=== PATIENT | female | born 1955 | race African-American/Black ===

== ENCOUNTER 2022-07-04 10:02 | Emergency (ER) | payer MEDICAID ==
[~2022-07-04] VITALS: Ht 157.5 cm; Wt 61.0 kg
[2022-07-04] MEDS ORDERED: MAGNESIUM/ALUMINUM HYDROXIDE/SIMETHICONE 30ML UDC PO STA (11:13)
[2022-07-04] MEDS ORDERED: VISCOUS LIDOCAINE 2% 15 ML UDC PO STA (11:13)
[2022-07-04] MEDS ORDERED: DICYCLOMINE 10 MG/5 ML ORAL SYR PO STA (11:13)
[2022-07-04 11:15] LABS: BASOPHILS % 0.6 % (0.0-2.0); EOSINOPHILS % 1.4 % (0.0-5.0); HEMATOCRIT. 38.2 % (36.0-48.0); HEMOGLOBIN. 13.2 g/dL (12.0-16.0); LYMPHOCYTES % 15.1 % (20.0-50.0); MEAN CORPUSCULAR HEMOGLOBIN 30.7 pg (28.0-32.0); MEAN CORPUSCULAR VOLUME 88.8 fL (81.0-99.0); MEAN PLATELET VOLUME 9.1 fl (7.4-10.4); MONOCYTES % 7.3 % (2.0-8.0); NEUTROPHILS % 75.6 % (40.0-76.0); PLATELET 282 x1000/uL (130-400); RED CELL DISTRIBUTION WIDTH 13.4 % (11.6-14.6)
[2022-07-04] MEDS ORDERED: ASPIRIN 81MG TABLET PO ONE (11:15)
[2022-07-04 11:32] LABS: PARTIAL THROMBOPLASTIN TIME 26.1 sec (23.4-31.0); PROTHROMBIN TIME 10.9 sec (9.6-11.0)
[2022-07-04 11:33] LABS: CHLORIDE 87 mEq/L (98-107)
[2022-07-04] MEDS ORDERED: SODIUM CHLORIDE 0.9% 1,000 ML IV NR (12:15)
[2022-07-04 22:57] VITALS: BP 122/75
== END 2022-07-04 23:25 | disposition short-term general hospital (02) ==
LOC: ER 10:02 → CANBEDREQ 07-05 21:04
DX: K85.90 Acute pancreatitis without necrosis or infection, unspecified (principal); N17.9 Acute kidney failure, unspecified; E11.9 Type 2 diabetes mellitus without complications; Z20.822 Contact with and (suspected) exposure to COVID-19
CPT/HCPCS: 36415; 71045; 74176; 80053; 83690; 83880; 84484; 85025; 85379; 85610; 85730; 87426; 93005; 96360; 96361; 99285; C9803; Z7610

== ENCOUNTER 2022-12-27 10:26 | Emergency (ER) | payer OTHER ==
[~2022-12-27] VITALS: Ht 154.9 cm; Wt 68.0 kg
[2022-12-27 10:32] VITALS: O2SAT 100
[2022-12-27] MEDS ORDERED: ACETAMINOPHEN 325MG TABLET PO STA (10:36)
[2022-12-27] MEDS ORDERED: SODIUM CHLORIDE 0.9% 1,000 ML IV ONE (10:45)
[2022-12-27] MEDS ORDERED: ASPIRIN 81MG TABLET PO ONE (10:45)
[2022-12-27 10:51] LABS: BASOPHILS % 0.6 % (0.0-2.0); EOSINOPHILS % 1.9 % (0.0-5.0); HEMATOCRIT. 33.5 % (36.0-48.0); HEMOGLOBIN. 11.2 g/dL (12.0-16.0); LYMPHOCYTES % 23.4 % (20.0-50.0); MEAN CORPUSCULAR HEMOGLOBIN 30.1 pg (28.0-32.0); MEAN PLATELET VOLUME 9.2 fl (7.4-10.4); MONOCYTES % 8.1 % (2.0-8.0); PLATELET 250 x1000/uL (130-400); RED BLOOD CELL COUNT 3.72 mill/uL (4.2-5.4); RED CELL DISTRIBUTION WIDTH 13.2 % (11.6-14.6)
[2022-12-27 11:06] LABS: CHLORIDE 113 mEq/L (98-107)
[2022-12-27 11:12] LABS: PROTHROMBIN TIME 10.8 sec (9.6-11.0)
[2022-12-27 11:16] LABS: BETA HYDROXYBUTYRATE 0.1 mMol/L (0.0-0.3)
[2022-12-27 14:32] VITALS: BP 136/75; PULSE 65; RESP 16; TEMP 98.7
== END 2022-12-27 14:36 | disposition home or self-care (01) ==
LOC: ER 10:26
DX: E11.40 Type 2 diabetes mellitus with diabetic neuropathy, unspecified (principal); R51.9 Headache, unspecified; Z20.822 Contact with and (suspected) exposure to COVID-19
CPT/HCPCS: 80053; 82010; 83880; 83690; 85025; 85610; 84484; 36415; 71045; 70450; 93005; 96360; 99285; 87426; Z7610 ×5; J7030; C9803

== ENCOUNTER 2024-12-14 08:10 | Inpatient (IN) | payer OTHER ==
[2024-12-14] VITALS (26 sets, daily range): BP systolic 82–133; BP diastolic 45–77; PULSE 83–117; RESP 14–35; TEMP 36.7–37; O2SAT 98–100
[~2024-12-14] VITALS: Ht 157.5 cm; Wt 58.1 kg
[~2024-12-14 08:10] MED LIST: CYAN-50 PO; GABA-1180 PO; INSU100I28 SQ; LOSA25TA26 PO; SEMA7TAB2 PO; THIA50TA12 PO
[2024-12-14 09:46] LABS: BASOPHILS % 0.5 % (0.0-2.0); EOSINOPHILS % 0.1 % (0.0-5.0); HEMATOCRIT. 39.2 % (36.0-48.0); LYMPHOCYTES % 8.9 % (20.0-50.0); MEAN CORPUSCULAR HEMOGLOBIN 30.8 pg (28.0-32.0); MEAN CORPUSCULAR HGB CONC 33.1 g/dL (31.0-37.0); MEAN PLATELET VOLUME 9.4 fl (7.4-10.4); MONOCYTES % 3.1 % (2.0-8.0); NEUTROPHILS % 87.4 % (40.0-76.0); PLATELET 333 x1000/uL (130-400); RED BLOOD CELL COUNT 4.22 mill/uL (4.2-5.4); RED CELL DISTRIBUTION WIDTH 14.4 % (11.6-14.6); WHITE BLOOD COUNT 11.8 x1000/uL (4.5-11.0)
[2024-12-14 09:54] LABS: CHLORIDE 98 mEq/L (98-107)
[2024-12-14 09:56] LABS: CALCIUM 9.3 mg/dL (8.7-10.4)
[2024-12-14 10:01] LABS: GLUCOSE 216 mg/dL (70-105)
[2024-12-14 10:02] LABS: TROPONIN I HIGH SENSITIVITY 5 ng/L (3.0-34)
[2024-12-14 10:07] LABS: SODIUM 128 mEq/L (136-145); UREA NITROGEN BLOOD 48 mg/dL (9-23)
[2024-12-14 10:16] LABS: POTASSIUM 6.2 mEq/L (3.5-5.1)
[2024-12-14 10:17] LABS: CARBON DIOXIDE < 10 mEq/L (21-32); CREATININE 3.2 mg/dL (0.6-1.0)
[2024-12-14 11:36] LABS: POTASSIUM 4.1 mEq/L (3.5-5.1)
[2024-12-14 11:37] LABS: CALCIUM 9.2 mg/dL (8.7-10.4)
[2024-12-14 11:42] LABS: CREATININE 3.2 mg/dL (0.6-1.0)
[2024-12-14] MEDS ORDERED: KCL 20MEQ/100ML PREMIX 100 ML IV PRN (13:45)
[2024-12-14] MEDS ORDERED: SODIUM PHOSPHATE 15 MMOL in SODIUM CHLORIDE 0.9% 245 ML IV PRN (13:45)
[2024-12-14] MEDS ORDERED: BLOOD SUGAR DIAGNOSTIC STRIP TEST PRN ×2 (13:45→15:45)
[2024-12-14] MEDS ORDERED: SODIUM CHLORIDE 0.9% 1,000 ML IV SCH (13:45)
[2024-12-14] MEDS ORDERED: DEXTROSE 50% WATER 50ML SYRINGE IV PRN ×2 (13:45→15:45)
[2024-12-14] MEDS ORDERED: MAGNESIUM 2 G PREMIX 50 ML IV PRN (13:45)
[2024-12-14] MEDS ORDERED: POTASSIUM CHLORIDE 40 MEQ in SODIUM CHLORIDE 0.9% 230 ML IV PRN ×2 (13:45→15:45)
[2024-12-14] MEDS ORDERED: INSULIN REGULAR (DRIP) 100 UNITS in SODIUM CHLORIDE 0.9% 99 ML IV SCH (13:45)
[2024-12-14] MEDS: BLOOD SUGAR DIAGNOSTIC STRIP TEST SCH ×2 (13:57→16:00)
[2024-12-14] MEDS: DEXT 5%/0.9% NACL 1,000 ML IV SCH ×2 (14:22→15:45)
[2024-12-14] MEDS: INSULIN REGULAR 100U/100ML PMX 100 ML IV PRN ×2 (14:22→20:46)
[2024-12-14 14:29] LABS: CHLORIDE 97 mEq/L (98-107); POTASSIUM 3.5 mEq/L (3.5-5.1); SODIUM 133 mEq/L (136-145)
[2024-12-14 14:30] LABS: CARBON DIOXIDE 13 mEq/L (21-32)
[2024-12-14 14:31] LABS: CALCIUM 9.2 mg/dL (8.7-10.4)
[2024-12-14 14:35] LABS: CREATININE 3.1 mg/dL (0.6-1.0); GLUCOSE 240 mg/dL (70-105)
[2024-12-14 14:36] LABS: UREA NITROGEN BLOOD 66 mg/dL (9-23)
[2024-12-14 14:38] LABS: PHOSPHORUS 5.6 mg/dL (2.5-4.9)
[2024-12-14 14:40] LABS: BG DEOXYHEMOGLOBIN 29.3 % (0.0-5.0)
[2024-12-14] MEDS ORDERED: ONDANSETRON HCL 4MG/2ML INJ IV PRN (15:45)
[2024-12-14] MEDS: KCL 20MEQ/100ML PREMIX 100 ML IV PRN (16:00)
[2024-12-14] MEDS: SODIUM CHLORIDE 0.9% 1,000 ML IV SCH (16:44)
[2024-12-14] MEDS: CEFTRIAXONE 1GM/50ML 50 ML IV SCH (20:44)
[2024-12-14] MEDS: SODIUM BICARBONATE 100 MEQ in SODIUM CHLORIDE 0.45% 1,000 ML IV ONE (20:44)
[2024-12-14 21:17] LABS: CHLORIDE 110 mEq/L (98-107); POTASSIUM 3.1 mEq/L (3.5-5.1); SODIUM 140 mEq/L (136-145)
[2024-12-14 21:18] LABS: CALCIUM 7.5 mg/dL (8.7-10.4); CARBON DIOXIDE 13 mEq/L (21-32)
[2024-12-14 21:23] LABS: CREATININE 2.4 mg/dL (0.6-1.0); GLUCOSE 90 mg/dL (70-105); UREA NITROGEN BLOOD 42 mg/dL (9-23)
[2024-12-14 21:25] LABS: CREATINE KINASE 53 IU/L (34-145); PHOSPHORUS 2.4 mg/dL (2.5-4.9)
[2024-12-14] MEDS: GABAPENTIN 300MG CAPSULE PO SCH (21:47)
[2024-12-14] MEDS ORDERED: FURO40TA5 PO (22:57)
[2024-12-15] VITALS (22 sets, daily range): BP systolic 84–126; BP diastolic 46–103; PULSE 81–104; RESP 13–25; TEMP 36.5–36.9; O2SAT 83–100
[2024-12-15 01:30] LABS: CHLORIDE 111 mEq/L (98-107); POTASSIUM 3.3 mEq/L (3.5-5.1); SODIUM 141 mEq/L (136-145)
[2024-12-15 01:32] LABS: CARBON DIOXIDE 15 mEq/L (21-32)
[2024-12-15 01:39] LABS: PHOSPHORUS 1.8 mg/dL (2.5-4.9)
[2024-12-15 04:26] LABS: INFLUENZA TYPE A Presumptive Negative (Pres. Neg.); INFLUENZA TYPE B Presumptive Negative (Pres. Neg.)
[2024-12-15 06:19] LABS: CHLORIDE 113 mEq/L (98-107); POTASSIUM 3.6 mEq/L (3.5-5.1); SODIUM 141 mEq/L (136-145)
[2024-12-15 06:20] LABS: CALCIUM 6.7 mg/dL (8.7-10.4); CARBON DIOXIDE 17 mEq/L (21-32)
[2024-12-15 06:25] LABS: CREATININE 1.8 mg/dL (0.6-1.0); GLUCOSE 331 mg/dL (70-105)
[2024-12-15 06:26] LABS: UREA NITROGEN BLOOD 35 mg/dL (9-23)
[2024-12-15 06:28] LABS: PHOSPHORUS 1.1 mg/dL (2.5-4.9)
[2024-12-15] MEDS: CITRIC ACID/SODIUM CITRATE SOLN 30ML UDC PO SCH (08:13)
[2024-12-15] MEDS: THIAMINE HCL 100MG TABLET PO SCH (08:14)
[2024-12-15] MEDS: CYANOCOBALAMIN 1000MCG TABLET PO SCH (08:14)
[2024-12-15] MEDS: PANTOPRAZOLE SODIUM 40 MG/VIAL IV SCH (08:14)
[2024-12-15] MEDS: FUROSEMIDE 40MG TABLET PO SCH (08:14)
[2024-12-15] MEDS: ACETAMINOPHEN 325MG TABLET PO PRN (08:14)
[2024-12-15] MEDS: LOSARTAN 25 MG TABLET PO SCH (08:50)
[2024-12-15] MEDS: MAGNESIUM 2 G PREMIX 50 ML IV PRN (08:51)
[2024-12-15] MEDS ORDERED: SODIUM PHOSPHATE 20 MMOL in DEXT 5% WATER 243.3333 ML IV ONE (09:15)
[2024-12-15] MEDS ORDERED: MAGNESIUM 1 G PREMIX 100 ML IV ONE (09:15)
[2024-12-15] MEDS ORDERED: DEXTROSE 50% WATER 50ML SYRINGE IV PRN (09:30)
[2024-12-15] MEDS ORDERED: POTASSIUM PHOSPHATE 15 MMOL in DEXT 5% WATER 245 ML IV ONE (10:00)
[2024-12-15] MEDS ORDERED: MAGNESIUM 2 G PREMIX 50 ML IV ONE (10:00)
[2024-12-15] MEDS ORDERED: SODIUM PHOSPHATE 20 MMOL in DEXT 5% WATER 243.3333 ML IV SCH (10:30)
[2024-12-15 10:52] LABS: BASOPHILS % 0.2 % (0.0-2.0); EOSINOPHILS % 0.5 % (0.0-5.0); HEMATOCRIT. 27.1 % (36.0-48.0); LYMPHOCYTES % 13.8 % (20.0-50.0); MEAN CORPUSCULAR HEMOGLOBIN 30.8 pg (28.0-32.0); MEAN CORPUSCULAR HGB CONC 34.4 g/dL (31.0-37.0); MEAN CORPUSCULAR VOLUME 89.6 fL (81.0-99.0); MEAN PLATELET VOLUME 9.1 fl (7.4-10.4); MONOCYTES % 10.3 % (2.0-8.0); NEUTROPHILS % 75.2 % (40.0-76.0); PLATELET 249 x1000/uL (130-400); RED BLOOD CELL COUNT 3.02 mill/uL (4.2-5.4); RED CELL DISTRIBUTION WIDTH 13.5 % (11.6-14.6); WHITE BLOOD COUNT 9.3 x1000/uL (4.5-11.0)
[2024-12-15] MEDS: ENOXAPARIN 30MG/0.3ML SYR SUBCUT SCH (11:05)
[2024-12-15] MEDS: SODIUM PHOSPHATE 15 MMOL in SODIUM CHLORIDE 0.9% 245 ML IV PRN (11:05)
[2024-12-15] MEDS: BLOOD SUGAR DIAGNOSTIC STRIP TEST SCH (11:06)
[2024-12-15] MEDS: INSULIN LISPRO 100 UNITS/ML SUBCUT SCH (11:06)
[2024-12-15 11:17] LABS: HEMOGLOBIN. 9.3 g/dL (12.0-16.0)
[2024-12-15 11:57] LABS: CLARITY URINE CLEAR (CLEAR); COLOR URINE YELLOW (YELLOW); GLUCOSE URINE 1+ (NEGATIVE); KETONES URINE NEGATIVE (NEGATIVE); LEUKOCYTE ESTERASE URINE TRACE (NEGATIVE); NITRITE URINE NEGATIVE (NEGATIVE); OCCULT BLOOD URINE NEGATIVE (NEGATIVE); PROTEIN URINE NEGATIVE (NEGATIVE); SPECIFIC GRAVITY URINE 1.012 (1.005-1.030); UROBILINOGEN URINE 0.2 E.U./dL (0.2-1.0)
[2024-12-15 12:23] LABS: *AMPHETAMINES SCREEN URINE NEGATIVE (NEGATIVE); *BARBITURATES SCREEN URINE NEGATIVE (NEGATIVE); *BENZODIAZEPINES SCREEN URINE NEGATIVE (NEGATIVE); *COCAINE SCREEN URINE NEGATIVE (NEGATIVE); CANNABINOID URINE SCREEN NEGATIVE (NEGATIVE); ECSTASY MDMA SCREEN URINE NEGATIVE (NEGATIVE); METHADONE URINE SCREEN NEGATIVE (NEGATIVE); OPIATES URINE SCREEN NEGATIVE (NEGATIVE); PHENCYCLIDINE URINE SCREEN NEGATIVE (NEGATIVE)
[2024-12-15 12:47] LABS: SQUAMOUS EPITHELIAL CELL URINE FEW /lpf (RARE/1+)
[2024-12-15 12:50] LABS: YEAST URINE 1+
[2024-12-15 12:52] LABS: BACTERIA URINE TRACE; RBC URINE 0-2 /hpf (0-2)
[2024-12-15] MEDS ORDERED: GABAPENTIN 100MG CAPSULE PO PRN (14:15)
[2024-12-15] MEDS: VALACYCLOVIR HCL 500MG TABLET PO SCH (15:14)
[2024-12-15 17:12] LABS: CARBON DIOXIDE 20 mEq/L (21-32); CHLORIDE 112 mEq/L (98-107); SODIUM 146 mEq/L (136-145)
[2024-12-15 17:13] LABS: CALCIUM 7.1 mg/dL (8.7-10.4)
[2024-12-15 17:18] LABS: CREATININE 1.5 mg/dL (0.6-1.0); GLUCOSE 245 mg/dL (70-105); UREA NITROGEN BLOOD 23 mg/dL (9-23)
[2024-12-15 17:20] LABS: PHOSPHORUS 1.5 mg/dL (2.5-4.9)
[2024-12-15] MEDS: CAPSAICIN 0.075% CREAM 57GM TOP PRN (17:48)
[2024-12-15 20:57] LABS: CARBON DIOXIDE 21 mEq/L (21-32); CHLORIDE 113 mEq/L (98-107); SODIUM 148 mEq/L (136-145)
[2024-12-15 20:58] LABS: CALCIUM 7.3 mg/dL (8.7-10.4)
[2024-12-15 21:02] LABS: CREATININE 1.4 mg/dL (0.6-1.0); GLUCOSE 181 mg/dL (70-105)
[2024-12-15 21:03] LABS: UREA NITROGEN BLOOD 25 mg/dL (9-23)
[2024-12-15 21:51] LABS: POTASSIUM 2.8 mEq/L (3.5-5.1)
[2024-12-15] MEDS: MAGNESIUM 2 G PREMIX 50 ML IV SCH (22:28)
[2024-12-15] MEDS: POTASSIUM CHLORIDE 20MEQ TABLET SR PO SCH (22:28)
[2024-12-16] VITALS: BP 100/47; PULSE 105; RESP 18; TEMP 36.3; O2SAT 97
[2024-12-16 01:13] LABS: IRON 48 ug/dL (50-170)
[2024-12-16] MEDS: POTASSIUM PHOSPHATE 15 MMOL in DEXT 5% WATER 245 ML IV SCH (01:14)
[2024-12-16 01:16] LABS: TOTAL IRON BINDING CAPACITY 275 ug/dl (250-425)
[2024-12-16 04:00] VITALS: BP 114/57; PULSE 93; RESP 18; TEMP 36.8; O2SAT 100
[2024-12-16 08:00] VITALS: BP 113/60; PULSE 85; RESP 18; TEMP 36.7; O2SAT 99
[2024-12-16 08:16] LABS: BASOPHILS % 0.5 % (0.0-2.0); EOSINOPHILS % 0.7 % (0.0-5.0); HEMOGLOBIN. 10.1 g/dL (12.0-16.0); LYMPHOCYTES % 14.1 % (20.0-50.0); MEAN CORPUSCULAR HEMOGLOBIN 30.8 pg (28.0-32.0); MEAN CORPUSCULAR HGB CONC 32.5 g/dL (31.0-37.0); MEAN CORPUSCULAR VOLUME 94.9 fL (81.0-99.0); MEAN PLATELET VOLUME 9.3 fl (7.4-10.4); MONOCYTES % 6.7 % (2.0-8.0); PLATELET 262 x1000/uL (130-400); RED BLOOD CELL COUNT 3.27 mill/uL (4.2-5.4); RED CELL DISTRIBUTION WIDTH 14.1 % (11.6-14.6); WHITE BLOOD COUNT 8.4 x1000/uL (4.5-11.0)
[2024-12-16 09:29] LABS: CHLORIDE 113 mEq/L (98-107); POTASSIUM 3.9 mEq/L (3.5-5.1); SODIUM 148 mEq/L (136-145)
[2024-12-16 09:30] LABS: CARBON DIOXIDE 23 mEq/L (21-32)
[2024-12-16 09:35] LABS: CREATININE 1.3 mg/dL (0.6-1.0); GLUCOSE 132 mg/dL (70-105); UREA NITROGEN BLOOD 20 mg/dL (9-23)
[2024-12-16 09:37] LABS: PHOSPHORUS 1.9 mg/dL (2.5-4.9)
[2024-12-16 12:00] VITALS: BP 127/51; PULSE 86; RESP 18; TEMP 36.7; O2SAT 97
[2024-12-16] MEDS: ASCORBIC ACID 500 MG TABLET PO SCH (15:44)
[2024-12-16] MEDS: FERROUS SULFATE 325MG TABLET PO SCH (15:44)
[2024-12-16 16:00] VITALS: BP 116/68; PULSE 83; RESP 18; TEMP 36.3; O2SAT 96
[2024-12-16] MEDS: GABAPENTIN 100MG CAPSULE PO SCH (18:22)
[2024-12-16 20:00] VITALS: BP 110/60; PULSE 80; RESP 20; TEMP 36.8; O2SAT 99
[2024-12-16] MEDS: ZOLPIDEM TARTRATE 5MG TABLET PO PRN (22:55)
[2024-12-17] VITALS: BP 104/60; PULSE 76; RESP 18; TEMP 36.7; O2SAT 99
[2024-12-17] MEDS ORDERED: DIPHENHYDRAMINE 50MG CAPSULE PO PRN (03:00)
[2024-12-17 04:00] VITALS: BP 96/58; PULSE 80; RESP 18; TEMP 36.7; O2SAT 99
[2024-12-17 08:00] VITALS: BP 110/65; PULSE 87; RESP 18; TEMP 36.1; O2SAT 99
[2024-12-17 09:08] LABS: BASOPHILS % 0.7 % (0.0-2.0); EOSINOPHILS % 2.5 % (0.0-5.0); HEMATOCRIT. 30.9 % (36.0-48.0); HEMOGLOBIN. 10.2 g/dL (12.0-16.0); LYMPHOCYTES % 25.4 % (20.0-50.0); MEAN CORPUSCULAR HEMOGLOBIN 30.6 pg (28.0-32.0); MEAN CORPUSCULAR VOLUME 92.7 fL (81.0-99.0); MEAN PLATELET VOLUME 9.1 fl (7.4-10.4); MONOCYTES % 8.4 % (2.0-8.0); PLATELET 267 x1000/uL (130-400); RED BLOOD CELL COUNT 3.33 mill/uL (4.2-5.4); RED CELL DISTRIBUTION WIDTH 14.3 % (11.6-14.6); WHITE BLOOD COUNT 5.4 x1000/uL (4.5-11.0)
[2024-12-17] MEDS: SENNOSIDES 8.6MG TABLET PO SCH (09:09)
[2024-12-17 09:10] LABS: CHLORIDE 114 mEq/L (98-107); POTASSIUM 4.2 mEq/L (3.5-5.1); SODIUM 142 mEq/L (136-145)
[2024-12-17] MEDS: DOCUSATE SODIUM 100MG CAPSULE PO SCH (09:10)
[2024-12-17 09:11] LABS: CALCIUM 9.3 mg/dL (8.7-10.4); CARBON DIOXIDE 20 mEq/L (21-32)
[2024-12-17 09:16] LABS: CREATININE 1.2 mg/dL (0.6-1.0); GLUCOSE 159 mg/dL (70-105); UREA NITROGEN BLOOD 11 mg/dL (9-23)
[2024-12-17 09:18] LABS: ALANINE AMINOTRANSFERASE < 7 IU/L (10-49); ALBUMIN 3.9 g/dL (3.2-4.8); ASPARTATE AMINOTRANSFERASE 17 IU/L (<34); BILIRUBIN TOTAL 0.4 mg/dL (0.1-1.0); PROTEIN TOTAL 6.3 g/dL (6.0-8.3)
[2024-12-17 09:21] LABS: FERRITIN 161 ng/mL (10-291)
[2024-12-17 09:22] LABS: FOLIC ACID (FOLATE) SERUM 11.68 ng/mL (>5.38); VITAMIN B12 SERUM 1004 pg/mL (211-911)
[2024-12-17 12:00] VITALS: BP 118/61; PULSE 89; RESP 18; TEMP 36.3; O2SAT 98
[2024-12-17 12:29] LABS: PROTHROMBIN TIME 11.1 sec (9.6-11.0)
[2024-12-17 13:08] VITALS: BP 118/61; PULSE 89; TEMP 97.4; O2SAT 98
== END 2024-12-17 15:56 | disposition home or self-care (01) | DRG 469 ==
LOC: ER 08:10 → EDBEDREQ 12:28 → EDBEDREQTM 12:28 → EDBEDREQSVC 13:37 → ENRESERV 14:45 → MICUSO 15:40 → 8WST 12-15 11:46
PROVIDERS: ADMIT Internal Medicine; ATTEND Internal Medicine
DX: N17.9 Acute kidney failure, unspecified (principal); E11.10 Type 2 diabetes mellitus with ketoacidosis without coma; E87.1 Hypo-osmolality and hyponatremia; B02.29 Other postherpetic nervous system involvement; E83.39 Other disorders of phosphorus metabolism; E11.22 Type 2 diabetes mellitus with diabetic chronic kidney disease; E86.0 Dehydration; J02.9 Acute pharyngitis, unspecified; E87.6 Hypokalemia; D64.9 Anemia, unspecified; E87.5 Hyperkalemia; I12.9 Hypertensive chronic kidney disease with stage 1 through stage 4 chronic kidney disease, or unspecified chronic kidney disease; E78.5 Hyperlipidemia, unspecified; N18.9 Chronic kidney disease, unspecified; K57.30 Diverticulosis of large intestine without perforation or abscess without bleeding; K59.00 Constipation, unspecified; M10.9 Gout, unspecified; E83.42 Hypomagnesemia; R13.10 Dysphagia, unspecified; Z78.9 Other specified health status; Z82.49 Family history of ischemic heart disease and other diseases of the circulatory system; Z86.19 Personal history of other infectious and parasitic diseases; Z91.81 History of falling
CPT/HCPCS: 36415; 71045; 74176; 76770; 80048; 80051; 80053; 80305; 81003; 82010; 82270; 82375; 82533; 82550; 82570; 82607; 82728; 82746; 82803; 82962; 83540; 83550; 83735; 83880; 83930; 84100; 84145; 84300; 84443; 84484; 85025; 85044; 86850; 86900; 87804; 93005; 93970; 99291; A4606; J0696; J1650; J1815; J2470; J3475; J3480; J3490; J7030; J7042; J7050; J7060